=== PATIENT | female | born 1945 | race Caucasian/White ===

== ENCOUNTER 2017-07-15 05:58 | Inpatient (IN) | payer MEDICARE, BC ==
[2017-07-14 10:16] VITALS: BMI 25.0
[~2017-07-15] VITALS: Ht 152.4 cm; Wt 73.6 kg
[2017-07-15] VITALS (37 sets, daily range): BP systolic 85–144; BP diastolic 42–84; PULSE 63–99; RESP 14–21; Ht 152.4 cm; Wt 73.6 kg
[2017-07-15] MEDS ORDERED: CEFAZOLIN 2 GM/50 ML (PMX) 50 ML IVPB SCH (06:00)
[2017-07-15] MEDS ORDERED: NEOSTIGMINE 3 MG/3 ML SYRINGE ONE (07:00)
[2017-07-15] MEDS ORDERED: GLYCOPYRROLATE 1 MG INJ ONE (07:00)
[2017-07-15] MEDS ORDERED: POLYMYXIN/BACITRACIN 1L IRRIG ONE (07:00)
[2017-07-15] MEDS ORDERED: FELO10TA PO (07:25)
[2017-07-15] MEDS ORDERED: DABI150C PO (07:25)
[2017-07-15] MEDS ORDERED: LISI40TA9 PO (07:25)
[2017-07-15] MEDS ORDERED: TRAM50TA2 PO (07:25)
[2017-07-15] MEDS ORDERED: VIT D (07:25)
[2017-07-15] MEDS ORDERED: ADV25050 INHALATION (07:25)
[2017-07-15] MEDS ORDERED: ALPR0.5T6 PO (07:25)
[2017-07-15] MEDS ORDERED: MONT10TA24 PO (07:25)
[2017-07-15] MEDS ORDERED: MAGNESIUM (07:25)
[2017-07-15] MEDS ORDERED: ATOR40TA68 PO (07:25)
[2017-07-15] MEDS ORDERED: ALBU90AE INHALATION (07:25)
[2017-07-15] MEDS ORDERED: POTASSIUM CHLORIDE (07:25)
--- NOTE | 2017-07-15 07:45 | HPN ---
Date/Time of Note Date/Time of Note DATE: 07/15/17 TIME: 07:44 Interval H&P Admission Note Pt. seen H&P reviewed: No system changes ROSAMARIA GONZALES DPM Jul 15, 2017 07:45
[2017-07-15] MEDS ORDERED: PROPOFOL 20 ML ONE (07:48)
[2017-07-15] MEDS ORDERED: ROCURONIUM 50 MG INJ ONE (07:48)
[2017-07-15] MEDS ORDERED: MIDAZOLAM 1 MG/ML 2 ML INJ ONE (07:48)
[2017-07-15] MEDS ORDERED: LIDOCAINE 2% (SDV) 5 ML INJ ONE (07:48)
[2017-07-15] MEDS ORDERED: ROPIVACAINE 0.5 % 30 ML VIAL ONE ×2 (07:50→11:10)
[2017-07-15] MEDS ORDERED: FENTAnyl 50 MCG/ML VIAL ONE (07:50)
[2017-07-15] MEDS ORDERED: CEFAZOLIN 1 GM INJ ONE (08:18)
[2017-07-15 08:19] LABS: INR 0.95; PROTIME 12.7 Sec (12.2-14.2)
[2017-07-15] MEDS ORDERED: ONDANSETRON 4 MG INJ ONE (08:23)
[2017-07-15] MEDS ORDERED: FAMOTIDINE 20 MG INJ ONE (08:23)
[2017-07-15] MEDS ORDERED: DEXAMETHASONE 4 MG/ML 1 ML INJ ONE (08:23)
[2017-07-15] MEDS ORDERED: EPHEDrine SULFATE 50 MG/5 ML SYG ONE (08:40)
[2017-07-15] MEDS ORDERED: HYDROmorphONE 2 MG/ML SYG ONE (09:10)
[2017-07-15] MEDS ORDERED: BACITRACIN 50000 UNITS INJ ONE (10:13)
[2017-07-15] MEDS ORDERED: POLYMYXIN B 500000 UNIT INJ ONE (10:15)
--- NOTE | 2017-07-15 11:48 | RADRPT ---
PROCEDURE: Intraoperative imaging of the right ankle with fluoroscopy. CLINICAL INDICATION: Right ankle pain. Intraoperative. TECHNIQUE: 5 images of the right ankle were obtained in the operating room with an image intensifi er. No radiologist was in attendance. Fluoroscopy time is 44 seconds. COMPARISON: No prior study is available for comparison. FINDINGS: Surgical instruments are noted overlying the right ankle. Final images demonstrate arthroplasty of the tibiotalar joint. IMPRESSION: 1. Intraoperative imaging of the right ankle. RPTAT: QQ .Sly Laurent MD, MD Date Time Electronically viewed and signed by .Sly Laurent MD, MD on 07/15/2017 11:48 .R/
--- NOTE | 2017-07-15 11:55 | SIPON ---
Date/Time of Note Date/Time of Note DATE: 07/15/17 TIME: 11:53 Operative Report Preoperative Diagnosis Severe right ankle arthritis Severe right ankle pain Degenerative joint disease Postoperative Diagnosis Severe right ankle arthritis Severe right ankle pain Degenerative joint disease Operation/Procedure Performed Right total ankle replacement Surgeon see signature line directory assistance operator None Anesthesia: general Estimated blood loss: 10 - 50 ml's Transfusion Required none Specimen Bone from right ankle Grafts/Implants none Complications none ROSAMARIA GONZALES DPM Jul 15, 2017 11:55
--- NOTE | 2017-07-15 11:55 | OPR ---
Date/Time of Note Date/Time of Note DATE: 07/15/17 TIME: 11:55 Operative Report Procedure Date: Jul 15, 2017 Preoperative Diagnosis Degenerative joint disease right ankle Right ankle severe pain Morbid obesity Peripheral vascular disease Postoperative Diagnosis Degenerative joint disease right ankle Right ankle severe pain Morbid obesity Peripheral vascular disease Surgeon see signature line Corporate Account Executive None Anesthesia Type: general Estimated Blood Loss: 10 - 50 ml's Transfusion none Specimen Bone from the right ankle Grafts/Implants none Complications none Pt Condition Post Procedure: stable Disposition: PACU Indications This is a 72-year-old female patient has been suffering with significant right ankle pain for many years. She has developed arthritis of her ankle joint and is to a point where she is unable to ambulate without pain. Patient is fully evaluated and imaging studies have been reviewed which shows severe degenerative changes. My recommendation for patient is total ankle replacement of the right ankle. Risks and complications of this type of surgery was discussed with patient in great detail including but not limited to postoperative infection, postoperative pain, failure of surgery to correct the problem, need for additional surgical procedures, deep venous thrombosis, limb loss and loss of life. I have advised patient that if the implant fails, she may be requiring revision surgery or fusion of the ankle joint. Patient acknowledges understanding of the above discussion. Opportunity was given to patient to ask questions and all questions were answered. An informed consent was obtained, signed and placed in the chart. No guarantee or warranty was given or implied as to the outcome of the procedure either in verbal or written form. Procedure Description Patient was seen in the preoperative area. Proposed surgery was discussed with patient in great detail. Opportunity was given to patient to ask questions and all questions were answered. Informed consent was obtained, signed and placed in the chart. Patient was then taken to the operating room and was placed on the operating table in supine position. A thigh tourniquet was applied to the right thigh. Patient was placed under general anesthesia by the anesthesiologist. All bony prominences were padded properly. A timeout was called by the circulating nurse. The right lower extremity was then scrubbed, prepped and draped in the usual aseptic manner. Attention was directed to the right ankle. 13 cm linear incision was made over the anterior aspect of the right ankle. This was done using a #10 blade. Dissection was deepened to the subcutaneous layer with care being taken to identify and protect vital neurovascular structures. The extensor retinaculum was identified. The extensor retinaculum was then incised and dissection was deepened meticulous care and dissection. I identified the extensor digitorum longus tendon, extensor hallucis longus and tibialis anterior tendons. Dissection was continued bluntly between the extensor hallucis longus and extensor digitorum longus tendons. The neurovascular bundle was identified and protected. The neurovascular bundle along with the extensor hallucis longus and tibialis anterior were then retracted medially and the extensor digitorum longus tendon was retracted laterally. I was able to expose the periosteal layer of the anterior distal tibia and the ankle joint. A linear incision was made over the joint capsule of the right ankle and sharp dissection was made to dissect and do periosteal dissection exposing the entire ankle joint. The medial lateral gutters were then identified and dissected. The area was prepped for application of the cutting block for the distal tibia. The prefabricated cutting block was inserted and secured using K wires. The prefab was then removed and the actual cutting block of the distal tibia was inserted. Power saw was used to cut the distal fibula. The cut bone fragment was then removed all rough bony edges were smoothed using hand rasp. A rongeur was used to remove osteophytic lesions. Next, the cutting block to the talus was inserted and secured via K wire. Again the prefab was removed and the cutting block the talus was placed. The talar cuts were then made using a power saw. After the talus and tibial cuts, a rongeur was used to clean out the medial lateral gutters. Next, the wound was flushed with copious amounts of sterile normal saline. At this time distal tibia was prepped for acceptance of the tibial component. Appropriate drill holes were made according to the distal tibial guide. A trial talar dome and distal tibial component along with the trial poly-was inserted and was decided to place a #2 talus and a #2 talar component. Next, the tibial component was inserted and malleted into place under fluoroscopic guidance. Once that was completed, the talar component was inserted and malleted into place again under fluoroscopic guidance. A size 10 Rebekah was selected. The Rebekah was then inserted into position and locked. Intraoperative fluoroscopic pictures were obtained. All K wires were then removed. Again using a running suture osteophytic changes were then cut and passed from the field. Rough edges were smoothed using a hand rasp. Range of motion was tested and was found to be 10 of dorsiflexion with no ankle instability on the table. Next, the extensor retinaculum was reapproximated using 3-0 Vicryl, subcutaneous layer was closed using 4-0 Vicryl and the skin was closed using 5-0 Monocryl subcuticular stitch pattern. Steri-Strips were applied. Sterile dressing was applied and the thigh tourniquet was deflated at this time. Prompt hyperemic response was noted to the digits of the right foot. Posterior splint was applied to the right lower extremity. Anesthesiologist gave a popliteal block to the patient. Patient tolerated procedure and anesthesia well. Patient was then transferred to recovery room with vital signs stable vascular status intact to the right lower extremity. Patient will be admitted for pain management. I discussed case with Dr. Elias and he is accepting patient for admission. I will be consulting on the case. Postoperative orders were written. Patient is to remain nonweightbearing on the right lower extremity. Patient will be seen in house. ROSAMARIA GONZALES DPM Jul 15, 2017 11:55
[2017-07-15] MEDS ORDERED: ONDANSETRON 4 MG INJ IV PRN (12:00)
[2017-07-15] MEDS ORDERED: PROCHLORPERAZINE 10 MG INJ IV PRN (12:00)
[2017-07-15] MEDS ORDERED: DIPHENHYDRAMINE 50 MG INJ IV PRN (12:00)
[2017-07-15] MEDS ORDERED: FENTAnyl 50 MCG/ML VIAL IV PRN (12:00)
[2017-07-15] MEDS ORDERED: HYDROmorphONE (0.2 MG/ML) 10ML SYG IV PRN (12:00)
[2017-07-15] MEDS ORDERED: NACL 0.9% 3 ML SYG IV SCH (13:00)
[2017-07-15] MEDS ORDERED: ALBUTEROL HFA 8 GM INHALER INH PRN (13:00)
[2017-07-15] MEDS ORDERED: ACETAMINOPHEN 325 MG TAB PO PRN (13:00)
[2017-07-15] MEDS ORDERED: HYDROCODONE/APAP (5/325) TAB PO PRN (13:00)
--- NOTE | 2017-07-15 15:15 | RADRPT ---
PROCEDURE: XR Right Ankle. CLINICAL INDICATION: Right ankle pain. Postop. TECHNIQUE: 3 views. Frontal, lateral, and oblique. COMPARISON: None. FINDINGS: There is a right tibiotalar joint arthroplasty. Bone detail is obscured by the overlying splint. There is no lytic lesion. There is no lytic or blastic lesion. IMPRESSION: 1. Satisfactory postoperative appearance of the right ankle. RPTAT: QQ .Sly Laurent MD, MD Date Time Electronically viewed and signed by .Sly Laurent MD, MD on 07/15/2017 15:15 .R/
[2017-07-15] MEDS: HEPARIN 5,000 UNIT/0.5 ML VIAL SC SCH (15:40)
[2017-07-15] MEDS: OXYCODONE/ACETAMINOPHEN (5/325) TAB PO PRN (17:05)
--- NOTE | 2017-07-15 17:52 | HP ---
Date/Time of Note Date/Time of Note DATE: 07/15/17 TIME: 17:43 Assessment/Plan VTE Prophylaxis VTE Prophylaxis Intervention: heparin Lines/Catheters IV C[facility]ter Type (from [facility] Peripheral IV Urinary Cath still in place: No Assessment/Plan Problems: (1) Status post right ankle joint replacement Onset Date: ~ 07/15/2017 Status: Acute Comment: She is postoperative and stable at this time. Continue with routine care. Please I am having her on heparin for DVT prophylaxis which will transition over relatively soon to Eliquis. (2) Essential hypertension Status: Chronic Comment: Adequate control continue outpatient regimens. (3) Hyperlipidemia Status: Chronic Comment: Continue statin therapy. Qualifiers: Hyperlipidemia type: pure hypercholesterolemia Qualified Code: E78.00 - Pure hypercholesterolemia (4) Asthma, moderate persistent, well-controlled Status: Chronic Comment: Continue with controller medications and as needed medications. (5) Metabolic syndrome Status: Chronic Comment: I believe this is a exacerbated when she receives prednisone for polymyalgia rheumatica. At the present moment there is no indication to place her on the prednisone will observe this carefully. HPI/ROS Admit Date/Time Admit Date/Time Jul 15, 2017 at 05:58 Hx of Present Illness 72-year-old female admitted after right ankle replacement surgery. She had a history of right ankle injury which is slowly progressively worsened to the point that it interferes with activities of daily living and prevents her from being able to do self-care. She is now postop. ROS Constitutional: no complaints Eyes: no complaints ENT: no complaints Respiratory: no complaints Cardiovascular: no complaints Gastrointestinal: no complaints Genitourinary: no complaints Musculoskeletal: other (Right ankle pain) Skin: no complaints Neurologic: no complaints Endocrine: no complaints PMH/Family/Social Past Medical History No known medical allergies Medical History: high cholesterol, hypertension, other (Asthma persistent moderate; osteoarthritis; status post CVA; impaired glucose tolerance; disorders of initiating and maintaining sleep; obesity; polymyalgia rheumatica; history of strabismus) Past Surgical History Past Surgical Hx: other (Status post strabismus repair left; status post left total knee replacement; status post left ACL repair; status post right total knee replacement) Family History Significant Family History: heart disease, hypertension Social History lives alone Alcohol Use: rarely Smoking Status: Never smoker Drug Use: none Exam/Review of Systems Vital Signs Vitals Vital Signs Date Time Temp Pulse Resp B/P Pulse Ox O2 Delivery O2 Flow Rate FiO2 07/15/17 17:33 Nasal Cannula 2.0 07/15/17 14:29 97.8 75 18 118/59 94 Exam Constitutional: alert, oriented Head: atraumatic, normocephalic Eyes: EOMI, PERRL, nl conjunctiva, nl lids, nl sclera ENMT: mucosa pink and moist, nl external ears & nose, nl lips & teeth, nl nasal mucosa & septum Neck: non-tender, supple Respiratory: clear to auscultation, normal air movement Cardiovascular: nl pulses, regular rate and rhythm Gastrointestinal: nl liver, spleen, non-tender, soft Musculoskeletal: other (Right distal extremity and full bandage both knees with anterior surgical scars from arthroplasty) Extremities: normal pulses Neurological: WIRELESS OPERATOR II-XII intact, nl mental status, nl speech, nl strength, other (Normal sensory exam including on the operated extremity) Medications Medications Outpatient medications; Advair 250/51 puff twice daily; ProAir air 2 puffs every 6 hours as needed; alprazolam 0.5 mg nightly; atorvastatin 40 mg every afternoon; vitamin D 1000 units once a day; Pradaxa 150 twice daily (being transitioned Eliquis immediately post discharge; felodipine 10 mg daily; lisinopril 40 mg daily; Montella cast 10 mg daily; tramadol as needed Current Medications Acetaminophen/ Hydrocodone Bitart (Wilson (10/325)) 1 tab Q4H PRN PO PAIN; Start 07/15/17 at 12:30 Acetaminophen (Tylenol Tab) 650 mg Q6H PRN PO PAIN LEVEL 1-3 OR FEVER; Start 07/15/17 at 13:00 Acetaminophen/ Hydrocodone Bitart (Wilson (5/325)) 1 tab Q6H PRN PO MODERATE PAIN LEVEL 4-6; Start 07/15/17 at 13:00 Oxycodone/ Acetaminophen (Percocet (5/ 325)) 2 tab Q6H PRN PO SEVERE PAIN LEVEL 7-10 Last administered on 07/15/17t 17:05; Admin Dose 2 TAB; Start at 13:00 Docusate Sodium (Colace) 100 mg Q12H PRN PO CONSTIPATION; Start 07/15/17 at 13: 00 Magnesium Hydroxide (Milk Of Mag) 30 ml DAILY PRN PO CONSTIPATION; Start at 13:00 Zolpidem Tartrate (Ambien) 5 mg QHS PRN PO SLEEP; Start 07/15/17 at 13:00 Famotidine (Pepcid) 20 mg Q12 PO ; Start 07/15/17 at 21:00 Heparin Sodium (Porcine) (Heparin (5000 Units/0.5 ml)) 5,000 unit Q8 SC Last administered on 07/15/17t 15:40; Admin Dose 5,000 UNIT; Start 07/15/17 at 14:00 ; Stop 07/18/17 at 13:59 Alprazolam (Xanax) 0.5 mg QHS PRN PO ANXIETY; Start 07/15/17 at 13:00 Atorvastatin Calcium (Lipitor) 40 mg QHS PO ; Start 07/15/17 at 21:00 Felodipine (Plendil) 10 mg DAILY PO ; Start 07/16/17 at 09:00 Lisinopril (Zestril) 40 mg DAILY PO ; Start 07/16/17 at 09:00 Montelukast Sodium (Singulair) 10 mg QHS PO ; Start 07/15/17 at 21:00 Salmeterol Xinafoate/ Fluticasone (Advair 250/50 Diskus) 1 inh BID INH ; Start 07/15/17 at 21:00 Cholecalciferol (Vitamin D) 1,000 unit DAILY PO ; Start 07/16/17 at 09:00 Apixaban (Eliquis) 5 mg BID PO ; Start 07/17/17 at 09:00 Copies To: CC: ROSAMARIA GONZALES DPM, JOSHUA A MD Jul 15, 2017 17:52
[2017-07-15] MEDS: SALMETEROL/FLUTICASONE 250/50 INHA INH SCH (20:06)
[2017-07-15] MEDS: ATORVASTATIN 40 MG TAB PO SCH (20:06)
[2017-07-15] MEDS: FAMOTIDINE 20 MG TAB PO SCH (20:07)
[2017-07-15] MEDS: ALPRAZOLAM 0.5 MG TAB PO PRN (20:07)
[2017-07-15] MEDS: MONTELUKAST 10 MG TAB PO SCH (20:09)
[2017-07-16] MEDS: OXYCODONE/ACETAMINOPHEN (5/325) TAB PO PRN ×4 (00:07→20:50)
[2017-07-16] MEDS: HEPARIN 5,000 UNIT/0.5 ML VIAL SC SCH ×4 (00:09→22:46)
[2017-07-16] MEDS: ZOLPIDEM 5 MG TAB PO PRN ×2 (02:55→22:45)
[2017-07-16 07:20] LABS: BASOPHILS % 0.1 % (0.0-2.0); EOSINOPHILS % 0.3 % (0.0-7.0); HEMATOCRIT 32.8 % (37.0-47.0); HEMOGLOBIN 10.5 g/dl (12.0-16.0); LYMPHOCYTES # 1.4 10^3/ul (0.8-2.9); MEAN CORPUSCULAR HEMOGLOBIN 28.4 pg (29.0-33.0); MEAN CORPUSCULAR VOLUME 88.6 fl (82.0-101.0); MEAN PLATELET VOLUME 11.5 fl (7.4-10.4); MONOCYTE # 0.9 10^3/ul (0.3-0.9); MONOCYTES % 11.7 % (0.0-11.0); NEUTROPHIL # 5.3 10^3/ul (1.6-7.5); NEUTROPHILS % 69.6 % (39.0-77.0); PLATELET COUNT 154 10^3/UL (140-415); RED CELL DISTRIBUTION WIDTH 13.5 % (11.5-14.5); WHITE BLOOD COUNT 7.6 10^3/ul (4.8-10.8)
[2017-07-16 07:49] LABS: ALBUMIN 3.2 g/dl (3.3-4.9); ALBUMIN/GLOBULIN RATIO 1.1; BILIRUBIN,INDIRECT 0.3 mg/dl (0-1.1); BILIRUBIN,TOTAL 0.3 mg/dl (0.2-1.3); CALCIUM 8.7 mg/dl (8.4-10.2); CREATININE 0.78 mg/dl (0.44-1.00); POTASSIUM 4.2 mmol/L (3.5-5.1); TOTAL PROTEIN 6.1 g/dl (6.1-8.1)
[2017-07-16] MEDS: HYDROCODONE/APAP (10/325) TAB PO PRN ×2 (08:07→15:04)
[2017-07-16 08:13] LABS: THYROID STIMULATING HORMONE 0.496 MIU/L (0.465-4.680)
[2017-07-16 08:30] VITALS: BP 119/60; RESP 18
[2017-07-16] MEDS: SALMETEROL/FLUTICASONE 250/50 INHA INH SCH ×2 (09:02→20:51)
[2017-07-16] MEDS: FAMOTIDINE 20 MG TAB PO SCH ×2 (09:02→20:48)
[2017-07-16] MEDS: CHOLECALCIFEROL 1,000 UNIT TAB PO SCH (09:02)
[2017-07-16] MEDS: LISINOPRIL 20 MG TAB PO SCH (09:03)
[2017-07-16] MEDS: FELODIPINE (ER) 10 MG TAB PO SCH (09:03)
--- NOTE | 2017-07-16 09:51 | PN ---
Date/Time of Note Date/Time of Note DATE: 07/16/17 TIME: 09:48 Assessment/Plan VTE Prophylaxis VTE Prophylaxis Intervention: heparin Lines/Catheters IV [facility] (from [facility] Peripheral IV Urinary Cath still in place: No Assessment/Plan Problems: (1) Status post right ankle joint replacement Onset Date: ~ 07/15/2017 Status: Acute Comment: Progressing postoperatively without complication. Resume formalized anticoagulation tomorrow the transition from heparin over to Eliquis. Continue with rehabilitation as per the operative surgeon Dr. Krish Barraza (2) Polymyalgia rheumatica Status: Chronic Comment: Stable (3) Asthma, moderate persistent, well-controlled Status: Chronic Comment: Good control on present controller medications continue same (4) Hyperlipidemia Status: Chronic Comment: Continue on statin therapy Qualifiers: Hyperlipidemia type: pure hypercholesterolemia Qualified Code: E78.00 - Pure hypercholesterolemia (5) Essential hypertension Status: Chronic Comment: Adequate control on blood pressure medications Subjective 24 Hr Interval Summary Free Text/Dictation Patient complains of postoperative pain but without other complaints. Constitutional: no complaints Respiratory: no complaints Cardiovascular: no complaints Gastrointestinal: no complaints Genitourinary: no complaints Musculoskeletal: other (Right ankle and lower leg pain without calf pain) Exam/Review of Systems Vital Signs Vitals Vital Signs Date Time Temp Pulse Resp B/P Pulse Ox O2 Delivery O2 Flow Rate FiO2 07/16/17 08:30 98.0 75 18 119/60 96 07/15/17 17:33 Nasal Cannula 2.0 Intake and Output 07/15/17 07/15/17 07/16/17 14:59 22:59 06:59 Intake Total 1500 ml 900 ml 420 ml Output Total 30 ml 600 ml 700 ml Balance 1470 ml 300 ml -280 ml Exam Constitutional: alert, oriented Neck: non-tender, supple Respiratory: clear to auscultation, normal air movement Cardiovascular: nl pulses, regular rate and rhythm Gastrointestinal: nl liver, spleen, non-tender, soft Extremities: other (Moves toes without complications. On the right leg in the area of the catheter can be examined no tenderness) Results Result Diagram: 07/16/17 0656 07/16/17 0656 Results 24 hrs Laboratory Tests Test 07/16/17 06:56 White Blood Count 7.6 Red Blood Count 3.70 L Hemoglobin 10.5 L Hematocrit 32.8 L Mean Corpuscular Volume 88.6 Mean Corpuscular Hemoglobin 28.4 L Mean Corpuscular Hemoglobin Concent 32.0 Red Cell Distribution Width 13.5 Platelet Count 154 Mean Platelet Volume 11.5 H Neutrophils % 69.6 Lymphocytes % 18.0 Monocytes % 11.7 H Eosinophils % 0.3 Basophils % 0.1 Nucleated Red Blood Cells % 0.0 Neutrophils # 5.3 Lymphocytes # 1.4 Monocytes # 0.9 Eosinophils # 0.0 Basophils # 0.0 Nucleated Red Blood Cells # 0.0 Sodium Level 141 Potassium Level 4.2 Chloride Level 107 Carbon Dioxide Level 31 Anion Gap 7 L Blood Urea Nitrogen 13 Creatinine 0.78 Glucose Level 101 Calcium Level 8.7 Total Bilirubin 0.3 Direct Bilirubin 0.00 Indirect Bilirubin 0.3 Aspartate Amino Transf (AST/SGOT) 24 Alanine Aminotransferase (ALT/SGPT) 39 Alkaline Phosphatase 71 Total Protein 6.1 Albumin 3.2 L Globulin 2.90 Albumin/Globulin Ratio 1.10 Thyroid Stimulating Hormone (TSH) 0.496 Medications Medications Current Medications Acetaminophen/ Hydrocodone Bitart (Katy (10/325)) 1 tab Q4H PRN PO PAIN Last administered on 07/16/17 08:07; Admin Dose 1 TAB; Start 07/15/17 at 12:30 Acetaminophen (Tylenol Tab) 650 mg Q6H PRN PO PAIN LEVEL 1-3 OR FEVER; Start 07/15/17 at 13:00 Acetaminophen/ Hydrocodone Bitart (Katy (5/325)) 1 tab Q6H PRN PO MODERATE PAIN LEVEL 4-6; Start 07/15/17 at 13:00 Oxycodone/ Acetaminophen (Percocet (5/ 325)) 2 tab Q6H PRN PO SEVERE PAIN LEVEL 7-10 Last administered on 07/16/17 05:53; Admin Dose 2 TAB; Start at 13:00 Docusate Sodium (Colace) 100 mg Q12H PRN PO CONSTIPATION; Start 07/15/17 at 13: 00 Magnesium Hydroxide (Milk Of Mag) 30 ml DAILY PRN PO CONSTIPATION; Start at 13:00 Zolpidem Tartrate (Ambien) 5 mg QHS PRN PO SLEEP Last administered on 02:55; Admin Dose 5 MG; Start 07/15/17 at 13:00 Famotidine (Pepcid) 20 mg Q12 PO Last administered on 07/16/17 09:02; Admin Dose 20 MG; Start 07/15/17 at 21:00 Heparin Sodium (Porcine) (Heparin (5000 Units/0.5 ml)) 5,000 unit Q8 SC Last administered on 07/16/17 06:41; Admin Dose 5,000 UNIT; Start 07/15/17 at 14:00 ; Stop 07/18/17 at 13:59 Alprazolam (Xanax) 0.5 mg QHS PRN PO ANXIETY Last administered on 07/15/17 20: 07; Admin Dose 0.5 MG; Start 07/15/17 at 13:00 Atorvastatin Calcium (Lipitor) 40 mg QHS PO Last administered on 07/15/17 20: 06; Admin Dose 40 MG; Start 07/15/17 at 21:00 Felodipine (Plendil) 10 mg DAILY PO Last administered on 07/16/17 09:03; Admin Dose 10 MG; Start 07/16/17 at 09:00 Lisinopril (Zestril) 40 mg DAILY PO Last administered on 07/16/17 09:03; Admin Dose 40 MG; Start 07/16/17 at 09:00 Montelukast Sodium (Singulair) 10 mg QHS PO Last administered on 07/15/17 20: 09; Admin Dose 10 MG; Start 07/15/17 at 21:00 Salmeterol Xinafoate/ Fluticasone (Advair 250/50 Diskus) 1 inh BID INH Last administered on 07/16/17 09:02; Admin Dose 1 INH; Start 07/15/17 at 21:00 Cholecalciferol (Vitamin D) 1,000 unit DAILY PO Last administered on 07/16/17 09:02; Admin Dose 1,000 UNIT; Start 07/16/17 at 09:00 Apixaban (Eliquis) 5 mg BID PO ; Start 07/17/17 at 09:00 GLORIA LOYOLA MD Jul 16, 2017 09:51
[2017-07-16] MEDS: traMADol 50 MG TAB PO PRN (11:31)
[2017-07-16 16:00] VITALS: BP 115/63; RESP 18
[2017-07-16] MEDS: DOCUSATE SODIUM 100 MG CAP PO PRN (18:13)
[2017-07-16 20:45] VITALS: BP 141/68; RESP 20
[2017-07-16] MEDS: ALPRAZOLAM 0.5 MG TAB PO PRN (20:49)
[2017-07-16] MEDS: ATORVASTATIN 40 MG TAB PO SCH (20:50)
[2017-07-16] MEDS: MONTELUKAST 10 MG TAB PO SCH (20:50)
--- NOTE | 2017-07-17 00:25 | PN ---
Date/Time of Note Date/Time of Note DATE: 07/16/17 TIME: 05:23 Assessment/Plan Lines/Catheters IV Catheter Type (from Nrsg): Saline Lock Burns in Place (from Nrsg): No Assessment/Plan Problems: (1) Postop check (2) Status post right ankle joint replacement Onset Date: ~ 07/15/2017 Status: Acute (3) History of arthroplasty of right knee (4) History of arthroplasty of left knee Assessment/Plan Sterile dressing was reapplied. Remain nonweightbearing. Pain management to continue. I will see the patient in-house. Subjective 24 Hr Interval Summary Patient status post right total ankle replacement. Postop day 1. Reports she continues to have pain despite the pain medications is getting. She denies injury and reports no fever or chills. Denies chest pain or shortness of breath. Constitutional: no complaints Pain Control: moderate Exam/Review of Systems Vital Signs Vitals Vital Signs Date Time Temp Pulse Resp B/P Pulse Ox O2 Delivery O2 Flow Rate FiO2 07/16/17 20:45 98.6 73 20 141/68 98 07/15/17 17:33 Nasal Cannula 2.0 Intake and Output 07/16/17 07/16/17 07/17/17 15:00 23:00 07:00 Intake Total 1180 ml Balance 1180 ml Exam Free Text/Dictation Patient is laying supine in bed in no acute distress. Right lower extremity is elevated on a large foam elevator. Dressing was removed. Edges are intact along with Steri-Strips. No pus and no erythema noted. The area is tender to palpation and range of motion. Imaging reviewed. Labs reviewed. Results Result Diagram: 07/16/17 0656 07/16/17 0656 ROSAMARIA GONZALES DPM Jul 17, 2017 00:25
[2017-07-17 02:17] VITALS: BP 138/68; RESP 18
[2017-07-17] MEDS: OXYCODONE/ACETAMINOPHEN (5/325) TAB PO PRN ×4 (02:56→20:47)
[2017-07-17] MEDS: HEPARIN 5,000 UNIT/0.5 ML VIAL SC SCH (05:52)
[2017-07-17] MEDS: traMADol 50 MG TAB PO PRN ×2 (05:54→16:57)
[2017-07-17 08:21] VITALS: BP 143/69; RESP 18
[2017-07-17] MEDS ORDERED: DABIGATRAN 150 MG CAP PO SCH (09:00)
[2017-07-17] MEDS: LISINOPRIL 20 MG TAB PO SCH (09:11)
[2017-07-17] MEDS: APIXABAN 5 MG TABLET PO SCH ×2 (09:11→20:43)
[2017-07-17] MEDS: CHOLECALCIFEROL 1,000 UNIT TAB PO SCH (09:12)
[2017-07-17] MEDS: FELODIPINE (ER) 10 MG TAB PO SCH (09:12)
[2017-07-17] MEDS: FAMOTIDINE 20 MG TAB PO SCH ×2 (09:12→20:43)
[2017-07-17] MEDS: SALMETEROL/FLUTICASONE 250/50 INHA INH SCH ×2 (09:12→20:44)
--- NOTE | 2017-07-17 13:30 | PN ---
Date/Time of Note Date/Time of Note DATE: 07/17/17 TIME: 13:28 Assessment/Plan VTE Prophylaxis VTE Prophylaxis Intervention: other Lines/Catheters IV Catheter Type (from [facility]): Saline Lock Urinary Cath still in place: No Assessment/Plan Problems: (1) Status post right ankle joint replacement Onset Date: ~ 07/15/2017 Status: Acute Comment: She is progressing with physical therapy and Occupational Therapy. Please note the patient had been under the impression that she could extend her hospitalization. However this would cause her to lose the custodial bed at the facility that she had specifically chosen. It is my specific medical impression that she is very likely to be stable for discharge tomorrow morning July 18, 2017 (2) Essential hypertension Status: Chronic Comment: Good control (3) Hyperlipidemia Status: Chronic Comment: Continue with statin therapy Qualifiers: Hyperlipidemia type: pure hypercholesterolemia Qualified Code: E78.00 - Pure hypercholesterolemia (4) Asthma, moderate persistent, well-controlled Status: Chronic Comment: Asthma is well controlled Subjective 24 Hr Interval Summary Free Text/Dictation Patient reports that her pain today is less than yesterday although she is having difficulty getting around. Please see physical therapy and Occupational Therapy notes. Constitutional: no complaints (No fevers chills or sweats) Respiratory: no complaints Cardiovascular: no complaints Gastrointestinal: no complaints Genitourinary: no complaints Exam/Review of Systems Vital Signs Vitals Vital Signs Date Time Temp Pulse Resp B/P Pulse Ox O2 Delivery O2 Flow Rate FiO2 07/17/17 08:21 98.0 76 18 143/69 92 07/15/17 17:33 Nasal Cannula 2.0 Intake and Output 07/16/17 07/16/17 07/17/17 14:59 22:59 06:59 Intake Total 1180 ml 500 ml Output Total 750 ml Balance 1180 ml -250 ml Exam Constitutional: alert, oriented Neck: non-tender, supple Respiratory: clear to auscultation, normal air movement Cardiovascular: nl pulses, regular rate and rhythm Extremities: normal pulses Results Result Diagram: 07/16/17 0656 07/16/17 0656 Medications Medications Current Medications Acetaminophen/ Hydrocodone Bitart ([place] (10/325)) 1 tab Q4H PRN PO PAIN Last administered on 07/16/17t 15:04; Admin Dose 1 TAB; Start 07/15/17 at 12:30 Acetaminophen (Tylenol Tab) 650 mg Q6H PRN PO PAIN LEVEL 1-3 OR FEVER; Start 07/15/17 at 13:00 Acetaminophen/ Hydrocodone Bitart ([place] (5/325)) 1 tab Q6H PRN PO MODERATE PAIN LEVEL 4-6; Start 07/15/17 at 13:00 Oxycodone/ Acetaminophen (Percocet (5/ 325)) 2 tab Q6H PRN PO SEVERE PAIN LEVEL 7-10 Last administered on 07/17/17 09:17; Admin Dose 2 TAB; Start at 13:00 Docusate Sodium (Colace) 100 mg Q12H PRN PO CONSTIPATION Last administered on 07/16/17 18:13; Admin Dose 100 MG; Start 07/15/17 at 13:00 Magnesium Hydroxide (Milk Of Mag) 30 ml DAILY PRN PO CONSTIPATION; Start at 13:00 Zolpidem Tartrate (Ambien) 5 mg QHS PRN PO SLEEP Last administered on 22:45; Admin Dose 5 MG; Start 07/15/17 at 13:00 Famotidine (Pepcid) 20 mg Q12 PO Last administered on 07/17/17 09:12; Admin Dose 20 MG; Start 07/15/17 at 21:00 Heparin Sodium (Porcine) (Heparin (5000 Units/0.5 ml)) 5,000 unit Q8 SC Last administered on 07/17/17 05:52; Admin Dose 5,000 UNIT; Start 07/15/17 at 14:00 ; Stop 07/18/17 at 13:59 Alprazolam (Xanax) 0.5 mg QHS PRN PO ANXIETY Last administered on 07/16/17 20: 49; Admin Dose 0.5 MG; Start 07/15/17 at 13:00 Atorvastatin Calcium (Lipitor) 40 mg QHS PO Last administered on 07/16/17 20: 50; Admin Dose 40 MG; Start 07/15/17 at 21:00 Felodipine (Plendil) 10 mg DAILY PO Last administered on 07/17/17 09:12; Admin Dose 10 MG; Start 07/16/17 at 09:00 Lisinopril (Zestril) 40 mg DAILY PO Last administered on 07/17/17 09:11; Admin Dose 40 MG; Start 07/16/17 at 09:00 Montelukast Sodium (Singulair) 10 mg QHS PO Last administered on 07/16/17 20: 50; Admin Dose 10 MG; Start 07/15/17 at 21:00 Salmeterol Xinafoate/ Fluticasone (Advair 250/50 Diskus) 1 inh BID INH Last administered on 07/17/17 09:12; Admin Dose 1 INH; Start 07/15/17 at 21:00 Cholecalciferol (Vitamin D) 1,000 unit DAILY PO Last administered on 09:12; Admin Dose 1,000 UNIT; Start 07/16/17 at 09:00 Apixaban (Eliquis) 5 mg BID PO Last administered on 07/17/17 09:11; Admin Dose 5 MG; Start 07/17/17 at 09:00 Tramadol HCl (Ultram) 100 mg BID PRN PO PAIN AND/OR INFLAMMATION Last administered on 07/17/17 05:54; Admin Dose 100 MG; Start 07/16/17 at 11:30 GLORIA LOYOLA MD Jul 17, 2017 13:30
[2017-07-17 14:15] VITALS: BP 138/66; RESP 18
--- NOTE | 2017-07-17 18:37 | PN ---
Date/Time of Note Date/Time of Note DATE: 07/17/17 TIME: 18:36 Assessment/Plan Lines/Catheters IV Catheter Type (from Nrsg): Saline Lock Burns in Place (from Nrsg): No Assessment/Plan Problems: (1) Status post right ankle joint replacement Onset Date: ~ 07/15/2017 Status: Acute (2) Obesity (BMI 30.0-34.9) Status: Chronic (3) Postop check Assessment/Plan Continue IV pain control. Once pain is controlled with oral pain medication, patient may be discharged. Dressing was changed. Remain nonweightbearing on the right lower extremity. Subjective 24 Hr Interval Summary Patient is status post total ankle replacement of the right ankle; date of service July 15, 2017. Patient reports continued pain in the right ankle. Reports no fever and chills and denies chest pain or shortness of breath. Postop day 2. Constitutional: no complaints Pain Control: moderate Exam/Review of Systems Vital Signs Vitals Vital Signs Date Time Temp Pulse Resp B/P Pulse Ox O2 Delivery O2 Flow Rate FiO2 07/20/17 14:44 97.7 62 14 136/94 98 Room Air 62 Exam Free Text/Dictation Laying supine in bed in no acute distress. Right lower extremity is elevated. Dressing was changed. Incision is well coapted with no sign of infection. No wound dehiscence noted. No edema present. No ecchymosis noted. Labs reviewed. Imaging reviewed. ROSAMARIA GONZALES DPM Jul 17, 2017 18:36
[2017-07-17] MEDS: ALPRAZOLAM 0.5 MG TAB PO PRN (19:50)
[2017-07-17 20:22] VITALS: BP 112/57; RESP 20
[2017-07-17] MEDS: ATORVASTATIN 40 MG TAB PO SCH (20:43)
[2017-07-17] MEDS: MONTELUKAST 10 MG TAB PO SCH (20:43)
[2017-07-18] MEDS: OXYCODONE/ACETAMINOPHEN (5/325) TAB PO PRN (02:04)
[2017-07-18] MEDS: ZOLPIDEM 5 MG TAB PO PRN (02:05)
[2017-07-18 03:12] VITALS: BP 122/75; RESP 18
[2017-07-18 08:14] VITALS: BP 120/56; RESP 18
[2017-07-18] MEDS: FELODIPINE (ER) 10 MG TAB PO SCH (09:00)
[2017-07-18] MEDS: SALMETEROL/FLUTICASONE 250/50 INHA INH SCH ×2 (09:42→20:08)
[2017-07-18] MEDS: FAMOTIDINE 20 MG TAB PO SCH ×2 (09:43→20:17)
[2017-07-18] MEDS: APIXABAN 5 MG TABLET PO SCH ×2 (09:43→20:10)
[2017-07-18] MEDS: CHOLECALCIFEROL 1,000 UNIT TAB PO SCH (09:44)
[2017-07-18] MEDS: LISINOPRIL 20 MG TAB PO SCH (09:45)
[2017-07-18] MEDS: MAGNESIUM HYDROXIDE 30ML CUP PO PRN (09:51)
[2017-07-18] MEDS: traMADol 50 MG TAB PO PRN ×2 (09:51→20:15)
[2017-07-18] MEDS: ALPRAZOLAM 0.5 MG TAB PO PRN ×2 (13:47→20:09)
[2017-07-18 14:00] VITALS: BP 128/60; RESP 18
--- NOTE | 2017-07-18 16:30 | CONS ---
Date/Time of Note Date/Time of Note DATE: 07/18/17 TIME: 16:27 Assessment/Plan Assessment/Plan Problems: (1) Essential hypertension Status: Chronic Comment: decent blood pressure control (2) Hyperlipidemia Status: Chronic Comment: no issues Qualifiers: Hyperlipidemia type: pure hypercholesterolemia Qualified Code: E78.00 - Pure hypercholesterolemia (3) Asthma, moderate persistent, well-controlled Status: Chronic Comment: controlled (4) Status post right ankle joint replacement Onset Date: ~ 07/15/2017 Status: Acute Comment: working with physical therapy. clinically stable. progressing nicely. Consultation Date/Type/Reason Admit Date/Time Jul 15, 2017 at 05:58 Initial Consult Date Type of Consultation: Internal Medicine Consultation 24 HR Interval Summary Free Text/Dictation Does not like zolpidem for sleep. Normally uses alprazolam 1mg at home. Exam/Review of Systems Vital Signs Vitals Vital Signs Date Time Temp Pulse Resp B/P Pulse Ox O2 Delivery O2 Flow Rate FiO2 07/18/17 08:14 98.0 68 18 120/56 100 07/15/17 17:33 Nasal Cannula 2.0 Intake and Output 07/17/17 07/17/17 07/18/17 15:00 23:00 07:00 Intake Total 840 ml 500 ml Output Total 1100 ml 700 ml Balance -260 ml -200 ml Exam Patient in restroom. Spoke with family member and nurse. Results Result Diagram: 07/16/17 0656 07/16/17 0656 Medications Medications Current Medications Acetaminophen/ Hydrocodone Bitart ([place] (10/325)) 1 tab Q4H PRN PO PAIN Last administered on 07/16/17 15:04; Admin Dose 1 TAB; Start 07/15/17 at 12:30 Acetaminophen (Tylenol Tab) 650 mg Q6H PRN PO PAIN LEVEL 1-3 OR FEVER; Start 07/15/17 at 13:00 Acetaminophen/ Hydrocodone Bitart ([place] (5/325)) 1 tab Q6H PRN PO MODERATE PAIN LEVEL 4-6; Start 07/15/17 at 13:00 Oxycodone/ Acetaminophen (Percocet (5/ 325)) 2 tab Q6H PRN PO SEVERE PAIN LEVEL 7-10 Last administered on 07/18/17 02:04; Admin Dose 2 TAB; Start at 13:00 Docusate Sodium (Colace) 100 mg Q12H PRN PO CONSTIPATION Last administered on 07/16/17 18:13; Admin Dose 100 MG; Start 07/15/17 at 13:00 Magnesium Hydroxide (Milk Of Mag) 30 ml DAILY PRN PO CONSTIPATION Last administered on 07/18/17 09:51; Admin Dose 30 ML; Start 07/15/17 at 13:00 Famotidine (Pepcid) 20 mg Q12 PO Last administered on 07/18/17 09:43; Admin Dose 20 MG; Start 07/15/17 at 21:00 Atorvastatin Calcium (Lipitor) 40 mg QHS PO Last administered on 07/17/17 20: 43; Admin Dose 40 MG; Start 07/15/17 at 21:00 Felodipine (Plendil) 10 mg DAILY PO Last administered on 07/17/17 09:12; Admin Dose 10 MG; Start 07/16/17 at 09:00 Lisinopril (Zestril) 40 mg DAILY PO Last administered on 07/18/17 09:45; Admin Dose 40 MG; Start 07/16/17 at 09:00 Montelukast Sodium (Singulair) 10 mg QHS PO Last administered on 07/17/17 20: 43; Admin Dose 10 MG; Start 07/15/17 at 21:00 Salmeterol Xinafoate/ Fluticasone (Advair 250/50 Diskus) 1 inh BID INH Last administered on 07/18/17 09:42; Admin Dose 1 INH; Start 07/15/17 at 21:00 Cholecalciferol (Vitamin D) 1,000 unit DAILY PO Last administered on 09:44; Admin Dose 1,000 UNIT; Start 07/16/17 at 09:00 Apixaban (Eliquis) 5 mg BID PO Last administered on 07/18/17 09:43; Admin Dose 5 MG; Start 07/17/17 at 09:00 Tramadol HCl (Ultram) 100 mg BID PRN PO PAIN AND/OR INFLAMMATION Last administered on 07/18/17 09:51; Admin Dose 100 MG; Start 07/16/17 at 11:30 Alprazolam (Xanax) 1 mg QHS PRN PO anxiety and insomnia; Start 07/18/17 at 15: 00 EDMOND SALOMON MD Jul 18, 2017 16:30
[2017-07-18 20:00] VITALS: BP 127/61; RESP 18
[2017-07-18] MEDS: DOCUSATE SODIUM 100 MG CAP PO PRN (20:10)
[2017-07-18] MEDS: MONTELUKAST 10 MG TAB PO SCH (20:10)
[2017-07-18] MEDS: ATORVASTATIN 40 MG TAB PO SCH (20:10)
[2017-07-19] MEDS: traMADol 50 MG TAB PO PRN ×2 (02:24→20:08)
[2017-07-19 02:28] VITALS: BP 112/55; PULSE 82
[2017-07-19] MEDS: MAGNESIUM HYDROXIDE 30ML CUP PO PRN (06:44)
[2017-07-19 07:18] VITALS: BP 107/51; RESP 20
[2017-07-19] MEDS: FELODIPINE (ER) 10 MG TAB PO SCH (09:00)
[2017-07-19] MEDS: LISINOPRIL 20 MG TAB PO SCH (09:00)
[2017-07-19] MEDS: CHOLECALCIFEROL 1,000 UNIT TAB PO SCH (09:06)
[2017-07-19] MEDS: FAMOTIDINE 20 MG TAB PO SCH ×2 (09:06→20:08)
[2017-07-19] MEDS: APIXABAN 5 MG TABLET PO SCH ×2 (09:07→20:07)
[2017-07-19] MEDS: SALMETEROL/FLUTICASONE 250/50 INHA INH SCH ×2 (09:07→20:10)
[2017-07-19 09:16] VITALS: BP 92/53; PULSE 72; PULSE 74; RESP 16
[2017-07-19 11:30] VITALS: BP 108/53; PULSE 84; RESP 16
[2017-07-19 15:05] VITALS: BP 116/58; RESP 20
--- NOTE | 2017-07-19 19:26 | CONS ---
Date/Time of Note Date/Time of Note DATE: 07/19/17 TIME: 13:20 Late entry Assessment/Plan Assessment/Plan Problems: (1) Essential hypertension Status: Chronic (2) Hyperlipidemia Status: Chronic Qualifiers: Hyperlipidemia type: pure hypercholesterolemia Qualified Code: E78.00 - Pure hypercholesterolemia (3) Status post right ankle joint replacement Onset Date: ~ 07/15/2017 Status: Acute Additional Assessment/Plan Clinically stable. Awaiting discharge to SNF/Rehab. Consultation Date/Type/Reason Admit Date/Time Jul 15, 2017 at 05:58 Type of Consultation: Internal Medicine Consultation 24 HR Interval Summary Free Text/Dictation Complain of ankle pain. Exam/Review of Systems Vital Signs Vitals Vital Signs Date Time Temp Pulse Resp B/P Pulse Ox O2 Delivery O2 Flow Rate FiO2 07/19/17 15:05 97.6 73 20 116/58 93 07/19/17 11:30 Room Air 07/15/17 17:33 2.0 Intake and Output 07/18/17 07/18/17 07/19/17 15:00 23:00 07:00 Intake Total 800 ml 480 ml Output Total 950 ml 750 ml Balance -150 ml -270 ml Exam Constitutional: alert, oriented Neck: supple Respiratory: clear to auscultation Cardiovascular: regular rate and rhythm Musculoskeletal: other (lower extremity in boot cast) Extremities: normal pulses Results Result Diagram: 07/16/17 0656 07/16/17 0656 Medications Medications Current Medications Acetaminophen/ Hydrocodone Bitart ([place] (10/325)) 1 tab Q4H PRN PO PAIN Last administered on 07/16/17 15:04; Admin Dose 1 TAB; Start 07/15/17 at 12:30 Acetaminophen (Tylenol Tab) 650 mg Q6H PRN PO PAIN LEVEL 1-3 OR FEVER Last administered on 07/19/17 03:03; Admin Dose 650 MG; Start 07/15/17 at 13:00 Acetaminophen/ Hydrocodone Bitart ([place] (5/325)) 1 tab Q6H PRN PO MODERATE PAIN LEVEL 4-6; Start 07/15/17 at 13:00 Oxycodone/ Acetaminophen (Percocet (5/ 325)) 2 tab Q6H PRN PO SEVERE PAIN LEVEL 7-10 Last administered on 07/18/17 02:04; Admin Dose 2 TAB; Start at 13:00 Docusate Sodium (Colace) 100 mg Q12H PRN PO CONSTIPATION Last administered on 07/18/17 20:10; Admin Dose 100 MG; Start 07/15/17 at 13:00 Magnesium Hydroxide (Milk Of Mag) 30 ml DAILY PRN PO CONSTIPATION Last administered on 07/19/17 06:44; Admin Dose 30 ML; Start 07/15/17 at 13:00 Famotidine (Pepcid) 20 mg Q12 PO Last administered on 07/19/17 09:06; Admin Dose 20 MG; Start 07/15/17 at 21:00 Atorvastatin Calcium (Lipitor) 40 mg QHS PO Last administered on 07/18/17 20: 10; Admin Dose 40 MG; Start 07/15/17 at 21:00 Felodipine (Plendil) 10 mg DAILY PO Last administered on 07/17/17 09:12; Admin Dose 10 MG; Start 07/16/17 at 09:00 Lisinopril (Zestril) 40 mg DAILY PO Last administered on 07/18/17 09:45; Admin Dose 40 MG; Start 07/16/17 at 09:00 Montelukast Sodium (Singulair) 10 mg QHS PO Last administered on 07/18/17 20: 10; Admin Dose 10 MG; Start 07/15/17 at 21:00 Salmeterol Xinafoate/ Fluticasone (Advair 250/50 Diskus) 1 inh BID INH Last administered on 07/19/17 09:07; Admin Dose 1 INH; Start 07/15/17 at 21:00 Cholecalciferol (Vitamin D) 1,000 unit DAILY PO Last administered on 09:06; Admin Dose 1,000 UNIT; Start 07/16/17 at 09:00 Apixaban (Eliquis) 5 mg BID PO Last administered on 07/19/17 09:07; Admin Dose 5 MG; Start 07/17/17 at 09:00 Tramadol HCl (Ultram) 100 mg BID PRN PO PAIN AND/OR INFLAMMATION Last administered on 07/19/17 02:24; Admin Dose 100 MG; Start 07/16/17 at 11:30 Alprazolam (Xanax) 1 mg QHS PRN PO anxiety and insomnia Last administered on t 20:09; Admin Dose 1 MG; Start 07/18/17 at 15:00 EDMOND SALOMON MD Jul 19, 2017 19:26
[2017-07-19] MEDS: ATORVASTATIN 40 MG TAB PO SCH (20:07)
[2017-07-19] MEDS: ALPRAZOLAM 0.5 MG TAB PO PRN (20:08)
[2017-07-19] MEDS: MONTELUKAST 10 MG TAB PO SCH (20:09)
[2017-07-19 20:19] VITALS: BP 126/60; RESP 16
[2017-07-20 02:24] VITALS: BP 124/58; RESP 14
[2017-07-20 08:33] VITALS: BP 111/59; PULSE 75; RESP 18
[2017-07-20] MEDS: FELODIPINE (ER) 10 MG TAB PO SCH ×2 (09:00→09:30)
[2017-07-20] MEDS: CHOLECALCIFEROL 1,000 UNIT TAB PO SCH (09:30)
[2017-07-20] MEDS: HYDROCODONE/APAP (10/325) TAB PO PRN (09:31)
[2017-07-20] MEDS: LISINOPRIL 20 MG TAB PO SCH (09:31)
[2017-07-20] MEDS: APIXABAN 5 MG TABLET PO SCH ×2 (09:31→19:09)
[2017-07-20] MEDS: FAMOTIDINE 20 MG TAB PO SCH ×2 (09:31→19:09)
[2017-07-20] MEDS: SALMETEROL/FLUTICASONE 250/50 INHA INH SCH ×2 (09:32→19:09)
[2017-07-20 14:25] VITALS: BP 136/94; PULSE 62; RESP 20
[2017-07-20 14:44] VITALS: BP 136/94; PULSE 62; RESP 14
[2017-07-20] MEDS: traMADol 50 MG TAB PO PRN (17:26)
--- NOTE | 2017-07-20 18:00 | DS ---
Date/Time of Note Date/Time of Note DATE: 07/20/17 TIME: 17:57 Discharge Summary Admission/Discharge Info Admit Date/Time Jul 15, 2017 at 05:58 Discharge Date/Time July 20, 2017 Discharge Diagnosis Is post right ankle arthroplasty/replacement for osteoarthritis; chronic pain syndrome; hyperlipidemia; asthma persistent moderate; essential hypertension Patient Condition: Fair Consults Gill-Dr. darryl Barraza Procedures Operative Report Procedure Date: Jul 15, 2017 Preoperative Diagnosis Degenerative joint disease right ankle Right ankle severe pain Morbid obesity Peripheral vascular disease Postoperative Diagnosis Degenerative joint disease right ankle Right ankle severe pain Morbid obesity Peripheral vascular disease Hx of Present Illness 72-year-old female admitted after right ankle replacement surgery. She had a history of right ankle injury which is slowly progressively worsened to the point that it interferes with activities of daily living and prevents her from being able to do self-care. She is now postop. Hospital Course 72-year-old female admitted straight from recovery after right ankle replacement. Please see history and physical. Patient progressed nicely but complained of pain and actually did not participate as often as we had hoped with physical therapy. She is now at a point where she is stable for discharge to a rehab facility. Please note she is nonweightbearing to the right ankle. She has however is in improved condition as compared to the time of admission. Her rehabilitation potential is fair although would be considered good with better cooperation Home Meds Reported Medications [Vit D] No Conflict Check 07/15/17 Tramadol HCl (Tramadol HCl) 50 Mg Tablet, 50 MG PO Q6H Y for PAIN, #120 TAB 07/15/17 Dabigatran Etexilate Mesylate* (Pradaxa*) 150 Mg Capsule, 150 MG PO DAILY, CAP 07/15/17 [Potassium Ci] No Conflict Check 07/15/17 Montelukast Sodium* (Montelukast Sodium*) 10 Mg Tablet, 10 MG PO QHS, #30 TAB 07/15/17 [Magnesium] No Conflict Check 07/15/17 Lisinopril* (Lisinopril*) 40 Mg Tablet, 40 MG PO DAILY, #30 TAB 07/15/17 Felodipine* (Felodipine*) 10 Mg Tab.sr.24h, 10 MG PO DAILY, TAB.SA 07/15/17 Atorvastatin* (Atorvastatin*) 40 Mg Tablet, 40 MG PO QHS, #30 TAB 07/15/17 Alprazolam* (Alprazolam*) 0.5 Mg Tablet, 0.5 MG PO QHS Y for ANXIETY, TAB 07/15/17 Albuterol Sulfate (Proair Respiclick) 90 Mcg Aer.pow.ba, 2 PUFFS INHALATION, BOTTLE 07/15/17 Salmeterol Xinaf/Fluticasone* (Advair*) 250-50 Diskus Inhaler, 1 INH INHALATION BID, #1 INHALER 07/15/17 Follow-up Plan Dr. Barraza in his office in the next week; to rehab facility Primary Care Provider Not On Staff Doctor Time spent on discharge: > 30 minutes GLORIA LOYOLA MD Jul 20, 2017 18:00
--- NOTE | 2017-07-20 18:00 | PDOCDIS ---
Discharge Instructions DIAGNOSIS Discharge Diagnosis Is post right ankle arthroplasty/replacement for osteoarthritis; chronic pain syndrome; hyperlipidemia; asthma persistent moderate; essential hypertension CONDITION Patient Condition: Fair HOME CARE INSTRUCTIONS: Diet Instructions: Reduced Calorie ACTIVITY: Activity Restrictions: Slowly Increase Activity No Sexual Activity Do not operate Machinery Do not operate Power Tool Keep Limb Elevated FOLLOW UP/APPOINTMENTS Follow-up Plan Dr. Barraza in his office in the next week; to rehab facility GLORIA LOYOLA MD Jul 20, 2017 18:00
[2017-07-20] MEDS: MONTELUKAST 10 MG TAB PO SCH (19:09)
[2017-07-20] MEDS: ATORVASTATIN 40 MG TAB PO SCH (19:09)
[2017-07-20] MEDS: ALPRAZOLAM 0.5 MG TAB PO PRN (19:15)
== END 2017-07-20 20:55 | DRG 469 ==
LOC: REC 05:58 → MS1 13:24
PROVIDERS: ADMIT Podiatrist Foot & Ankle Surgery; ATTEND Podiatrist Foot & Ankle Surgery
PROC: 0SRF0JA Replacement of Right Ankle Joint with Synthetic Substitute, Uncemented, Open Approach (ICD-10-PCS; principal; 2017-07-15 07:30)
DX: M19.071 Primary osteoarthritis, right ankle and foot (principal); E88.81 Metabolic syndrome and other insulin resistance; E66.01 Morbid (severe) obesity due to excess calories; I10 Essential (primary) hypertension; Z68.31 Body mass index [BMI] 31.0-31.9, adult; I73.9 Peripheral vascular disease, unspecified; E78.5 Hyperlipidemia, unspecified; J45.909 Unspecified asthma, uncomplicated; G89.4 Chronic pain syndrome; M35.3 Polymyalgia rheumatica
CPT/HCPCS: 80053; 84443; 85025; 85610; 85730; 88304; 88311; 97110; 97116; 97162; 97165; 97530; J0690; J1100; J1170; J1644; J2250; J2405; J2710; J2795; J3010